=== PATIENT | female | born 1970 | race Caucasian/White ===

== ENCOUNTER 2016-12-18 10:05 | Day surgery (SDC) | payer OTHER ==
[~2016-12-18] VITALS: Ht 160 cm; Wt 69.2 kg
--- NOTE | ~2016-12-18 | OR ---
PATIENT'S NAME: JOSE LOVE [facility] AGE: 46 Y [address] ROOM: [place] [address] [place] [facility] [place]: 12/18/2016 OR/Procedure Report DISCHARGE DATE: FAMILY PHYSICIAN: Thomas Santiago MD ATTENDING PHYSICIAN: Maria D Quiles SURGEON: Maria D Quiles MD ADDICTION TREATMENT COUNSELOR: Leana De Los Santos MD DATE OF PROCEDURE: 12/18/2016 PREOPERATIVE DIAGNOSIS: Enlarging right adnexal cyst. POSTOPERATIVE DIAGNOSIS: Right 6 cm paratubal cyst. PROCEDURE: 1. Mini-laparotomy. 2. Right salpingo-oophorectomy with frozen section. 3. Left ovarian follicular cyst drainage. ANESTHESIA: General endotracheal and TAP block. BLOOD LOSS: Less than 50 mL. COMPLICATIONS: None. PROCEDURE DETAILS: The patient was taken to the operating room and placed under a general endotracheal. She was prepped and draped, and a Robledo catheter was placed. A Pfannenstiel skin incision was used taking about three- fourths of her incision. This was carried down to the level of the fascia. The fascia was nicked in the midline. The incision was carried out laterally. The fascia was sharply and bluntly dissected from the underlying rectus muscles. Peritoneum was opened sharply and stretched. Careful attention was paid to the bowel and bladder. I collected pelvic washings. An adnexal cyst was noted on the right. I lifted this up, and the cyst appeared to come off the right tube. This cyst was above the right ovary. I went ahead and placed a clamp across the right mesosalpinx and removed the tube and ovary, and then I placed another clamp across the infundibulopelvic ligament and the uterine ovarian ligament, and this pedicle was cut and ligated. I sent the ovary, the right tube, and the cyst to pathology. Pathologist said there was a plaque on the inside which was probably what I was seeing on ultrasound as far as a solid area. I did a frozen section on this and thought it all looked benign. There was no bleeding on this pedicle. The left tube looked normal. The left ovary just showed some follicular cyst, but I went ahead and drained these so that they would not show up on ultrasound as a problem. The uterus looked normal. I had collected pelvic washings. But once we had benign findings, I went ahead and discarded these. The peritoneum PATIENT'S NAME: JOSE OLVE [facility] AGE: 46 Y [address] ROOM: [address] [address] [place] [facility] [place]: 12/18/2016 OR/Procedure Report DISCHARGE DATE: FAMILY PHYSICIAN: Thomas Santiago MD ATTENDING PHYSICIAN: Maria D Quiles was closed with 2-0 Vicryl, 0 Vicryl was used to close the fascia, and 4-0 Vicryl to close the skin. Steri-Strips and benzoin were placed, and then the patient had a TAP block with Anesthesia. She went to recovery in stable condition. Sponge, needle, and instrument counts were correct. MARIA D QUILES MD KHP/yoonl /[id number] d: 12/18/162021 t: 12/30/167, OPERATIVE SUMMARY
[~2016-12-18 10:05] MED LIST: LEVOCETIRIZINE D5 MG PO; NEXIUM40 MG PO
[2016-12-18 10:39] LABS: BASOPHIL % 0.5 %; EOSINOPHIL # 0.1 K/uL (0.0-0.5); EOSINOPHIL % 1.3 %; HEMATOCRIT 38.6 % (33.0-46.0); HEMOGLOBIN 12.5 g/dL (10.0-15.0); IMMATURE GRANULOCYTE % 0.2 %; LYMPHOCYTE # 1.7 K/uL (0.8-4.0); LYMPHOCYTE % 30.9 %; MCH 25.4 pg (27.0-34.0); MCHC 32.4 gm/dL (32.0-36.5); MCV 78.3 fl (83.0-98.0); MONOCYTE # 0.5 K/uL (0.0-1.0); MONOCYTE % 9.3 %; NEUTROPHIL # (ANC) 3.2 K/uL (1.8-7.8); NEUTROPHIL % 57.8 %; NRBC % 0 /100WBC (0-0.00); PLATELET COUNT 231 K/uL (150-450); RBC 4.93 M/uL (3.50-5.50); RDW-CV 15.9 % (11.9-14.6); WBC 5.5 K/uL (4.0-11.0)
--- NOTE | 2016-12-18 16:57 | NUR ---
Significant Event:Is A/O.IV in Lt.hand.Has CREDENTIALING MANAGER of morphine.Robledo drning clear yellow urine.Low abd/pelvic drsg D/I.No c/o pain."Alittle feeling of crampiness".No N/V. Follow up:
--- NOTE | 2016-12-19 04:48 | NUR ---
Significant Event: PATIENT IS ALERT AND ORIENTATED X4. AMBULATES WITH STAND BY ASSIST, WALKED IN HALLS X3 TONIGHT. FUR POINTER MORPHINE NO DEMANDS THIS SHIFT. LEFT IN PLACE NO PO PAIN MEDICATION ON ORDERS. IV TO L) HAND WITH FLUIDS RUNNING. HEALY WITH CLEAR YELLOW URINE DRAINING. VITAL SIGNS WNL ON RA. NO COMPLAINTS OF PAIN OR DISCOMFORT. PLAN IS TO GO HOME IN AM. Follow up:
[2016-12-19 09:52] LABS: BASOPHIL % 0.2 %; EOSINOPHIL % 0.4 %; HEMATOCRIT 35.9 % (33.0-46.0); HEMOGLOBIN 11.1 g/dL (10.0-15.0); IMMATURE GRANULOCYTE % 0.1 %; LYMPHOCYTE # 1.6 K/uL (0.8-4.0); LYMPHOCYTE % 19.9 %; MCHC 30.9 gm/dL (32.0-36.5); MCV 80.9 fl (83.0-98.0); MONOCYTE # 0.8 K/uL (0.0-1.0); MONOCYTE % 9.6 %; MPV 10.4 fl (9.4-12.4); NEUTROPHIL # (ANC) 5.7 K/uL (1.8-7.8); NEUTROPHIL % 69.8 %; NRBC % 0 /100WBC (0-0.00); PLATELET COUNT 218 K/uL (150-450); RBC 4.44 M/uL (3.50-5.50); RDW-CV 16.2 % (11.9-14.6); WBC 8.2 K/uL (4.0-11.0)
[2016-12-19] MEDS ORDERED: IBUPROFEN800 MG PO (11:51)
--- NOTE | 2016-12-19 13:43 | NUR ---
Met with patient and her daughter at bedside today. Introduced myself and the role of the CM. Patient states she is planning on discharging to home today. She was independent with all of her ADL's prior to hospitalization. She denies any concerns with discharging to home.
--- NOTE | 2016-12-19 16:35 | NUR ---
Significant event: Patient is alert and oriented. VSS. on room air. Had 300ml void post removal of catheter. Tolerated breakfast with no nausea. Plans to eat out for lunch. IV and phillips dc'd with no complications this morning. Copies of education and dismissal instructions given to patient. Prescriptions also given to patient. Instructed pt to keep on top of pain/discomfort with tylenol and ibuprofen. Voiced understanding. Encouraged patient to call Dr Quiles for any problems, questions, or concerns. Pt ambulated to front north door.
--- NOTE | 2016-12-19 17:13 | NUR ---
D: Orders received for the patient to be discharge to home today. I: Dismissal instructions were prepared and reviewed with the patient and family virtually. The following information was discussed including Krames teaching sheets: Discharge instructions for Lap oophorectomy, Motring and Preventing DVT. Reviewed new prescriptions and follow up appointments. R: The patient verbalized understanding of the dismissal education at the time of teaching with no further questions. P: The above information was shared with the primary nurse, charge nurse and the nurses aide that the patient is ready for dischared to the front door via wheel chair by nursing staff.
== END 2016-12-19 12:45 | disposition disaster alternative care site (69) ==
LOC: GMSU 10:05 → GSDC 10:05 → GMSU 10:06 → GSDC 12-19 12:45
PROVIDERS: Obstetrics & Gynecology
PROC: 0UT50ZZ Resection of Right Fallopian Tube, Open Approach (ICD-10-PCS; principal; 2016-12-18)
PROC: 0UT00ZZ Resection of Right Ovary, Open Approach (ICD-10-PCS; 2016-12-18)
DX: N83.291 Other ovarian cyst, right side (principal); N83.02 Follicular cyst of left ovary; Z88.2 Allergy status to sulfonamides; Z98.890 Other specified postprocedural states
CPT/HCPCS: J0690; J1100; J1885; J2001; J2250; J2270; J2405; J7120; J7121